=== PATIENT | male | born 1990 | race Caucasian/White ===

== ENCOUNTER 2023-05-23 16:55 | Emergency (ER) | payer SELFPAY ==
[~2023-05-23] VITALS: Ht 180.3 cm; Wt 100.0 kg
[2023-05-23 16:58] VITALS: BP 124/71; PULSE 101; RESP 16; TEMP 98; O2SAT 99
== END 2023-05-23 17:53 | disposition home or self-care (01) ==
LOC: ER 16:56
DX: F10.129 Alcohol abuse with intoxication, unspecified (principal); V87.7XXA Person injured in collision between other specified motor vehicles (traffic), initial encounter; Y93.89 Activity, other specified; Y92.89 Other specified places as the place of occurrence of the external cause; Y99.8 Other external cause status
CPT/HCPCS: 99283